=== PATIENT | female | born 1980 | race Caucasian/White ===

== ENCOUNTER 2017-08-05 06:50 | Emergency (ER) | payer OTHER ==
[~2017-08-05] VITALS: Ht 167.6 cm; Wt 162.8 kg
--- NOTE | 2017-08-05 07:09 | PHYS DOC ---
Past History Past Medical History: Hypertension, Hypothyroid Past Surgical History: Other Alcohol Use: None Drug Use: None Adult General Chief Complaint Chief Complaint: ABDOMINAL PAIN HPI HPI Patient is a 36-year-old female presenting to the emergency department for evaluation of right lower quadrant abdominal pain that woke her from her sleep at approximately 5:00 this morning. She says that she is having nausea and vomiting with it. She denies any fevers chills diarrhea constipation dysuria hematuria or abnormal bleeding or discharge. Patient denies having any abdominal surgeries in the past and she denies any similar symptoms. She appears uncomfortable but is in no obvious distress. Review of Systems Review of Systems Constitutional: Denies fever or chills [] Eyes: Denies change in visual acuity, redness, or eye pain [] HENT: Denies nasal congestion or sore throat [] Respiratory: Denies cough or shortness of breath [] Cardiovascular: No additional information not addressed in HPI [] GI: + abdominal pain, nausea, vomiting. No bloody stools or diarrhea [] : Denies dysuria or hematuria [] Musculoskeletal: Denies back pain or joint pain [] Integument: Denies rash or skin lesions [] Neurologic: Denies headache, focal weakness or sensory changes [] Allergies Allergies Allergies Coded Allergies Type Severity Reaction Last Updated Verified No Known Drug Allergies 08/05/17 No Physical Exam Physical Exam Constitutional: Well developed, well nourished, no acute distress, non-toxic appearance. [] HENT: Normocephalic, atraumatic, bilateral external ears normal, oropharynx moist, no oral exudates, nose normal. [] Eyes: PERRLA, EOMI, conjunctiva normal, no discharge. [] Neck: Normal range of motion, no tenderness, supple, no stridor. [] Cardiovascular:Heart rate regular rhythm, no murmur [] Lungs & Thorax: Bilateral breath sounds clear to auscultation [] Abdomen: Bowel sounds normal, soft, + RLQ tenderness, no rebound or guarding, no masses, no pulsatile masses. [] Skin: Warm, dry, no erythema, no rash. [] Back: No tenderness, no CVA tenderness. [] Extremities: No tenderness, no cyanosis, no clubbing, ROM intact, no edema. [] Neurologic: Alert and oriented X 3, normal motor function, normal sensory function, no focal deficits noted. [] Current Patient Data Vital Signs Vital Signs Date Time Temp Pulse Resp B/P (MAP) Pulse Ox O2 Delivery O2 Flow Rate FiO2 08/05/17 07:03 97.9 89 16 95 EKG EKG [] Radiology/Procedures Radiology/Procedures CT of the abdomen and pelvis with contrast, 08/05/2017: History: Right lower quadrant abdominal pain and vomiting Multidetector CT imaging was performed following an IV bolus injection of iodinated contrast material. No oral contrast material was administered for this study. No hepatic abnormality is detected. The gallbladder is unremarkable. The pancreas shows no abnormality. The spleen is of normal size. There is slight prominence of the right renal pelvis. There is slight asymmetry of the renal nephrograms. These findings are due to a 4 mm calculus in the proximal right ureter located at the L3-4 level. The kidneys are otherwise unremarkable. The abdominal aorta is of normal caliber. No retroperitoneal or pelvic adenopathy is seen. The bowel loops are not dilated. A portion of the appendix is visualized and it is of normal size. No pericecal inflammation is seen. Several small mesenteric lymph nodes are noted in the right lower quadrant without pathologic enlargement. No free air or free fluid is evident in the abdomen or pelvis. IMPRESSION: Small obstructing calculus in the proximal right ureter. PQRS Compliance Statement: One or more of the following individualized dose reduction techniques were utilized for this examination: 1. Automated exposure control 2. Adjustment of the mA and/or kV according to patient size 3. Use of iterative reconstruction technique DICTATED AND SIGNED BY: ROSANNA BUCKNER MD DATE: 08/05/17 0803 Course & Med Decision Making Course & Med Decision Making Patient with no flank pain rather she was having more right sided mid and lower abdominal pain so CT abdomen pelvis with contrast obtained which showed that she has a proximal right. Her stone with mild hydronephrosis. Morphine fentanyl Toradol and Zofran and her pain was much better. She said she was able to tolerate the pain's I by mouth challenged her with Percocet and Flomax and she said her pain is still improving and she can tolerate by mouth with no difficulty. Given patient's symptoms are controlled and she appears well with normal vital signs she will be discharged and treated as an outpatient. She was told to follow with a urologist as soon as she could otherwise come back to the emergency department for worsening pain fevers vomiting or other general concerns. Patient aware and agreeable with plan for discharge and verbalized understanding of the above instructions. Dragon Disclaimer Dragon Disclaimer This electronic medical record was generated, in whole or in part, using a voice recognition dictation system. Departure Departure: Impression: Primary Impression: Ureter, calculus Disposition: HOME, SELF-CARE Condition: STABLE Referrals: ANDRY LOWE DO, [facility] (PCP) Patient Instructions: Kidney Stones Additional Instructions: TAKE 400MG OF IBUPROFEN EVERY 6 HOURS FOR PAIN AND THE PERCOCET FOR BREAKTHROUGH PAIN. COME BACK WITH INTRACTABLE PAIN, FEVERS, VOMITING, OR OTHER GENERAL CONCERNS. TRY AND FOLLOW WITH A UROLOGIST SOON YOU CAN. [facility]: [phone] Scripts Tamsulosin Hcl (FLOMAX) 0.4 Mg Cap.er.24h 0.4 MG PO QHS, #10 CAP.SR Prov: SULAIMAN MELGAR DO 08/05/17 Ondansetron (ZOFRAN ODT) 4 Mg Tab.rapdis 1 TAB SL Q8HRS, #15 TAB Prov: SULAIMAN MELGAR DO 08/05/17 Oxycodone Hcl/Acetaminophen (PERCOCET 5-325 MG TABLET) 1 Each Tablet 1 EACH PO Q4-6HRS Y for PAIN, #25 TAB Prov: SULAIMAN MELGAR DO 08/05/17 SULAIMAN MELGAR DO Aug 05, 2017 07:09
[2017-08-05 07:30] LABS: BASO # 0.1 x10^3/uL (0.0-0.2); BASO % 1 % (0-3); EOS # 0.1 x10^3/uL (0.0-0.7); EOS % 1 % (0-3); HEMOGLOBIN 14.4 g/dL (12.0-15.5); LYMPH # 2.1 x10^3/uL (1.0-4.8); LYMPH % 19 % (24-48); MEAN CORPUSCULAR HEMOGLOBIN 31 pg (25-35); MEAN CORPUSCULAR HGB CONC 34 g/dL (31-37); MEAN CORPUSCULAR VOLUME 91 fL (79-100); MONO # 0.8 x10^3/uL (0.0-1.1); MONO % 7 % (0-9); NEUT # 8.3 x10^3uL (1.8-7.7); NEUT % 73 % (31-73); PLATELET COUNT 304 x10^3/uL (140-400); RED BLOOD COUNT 4.72 x10^6/uL (3.50-5.40); RED CELL DISTRIBUTION WIDTH 13.1 % (11.5-14.5); WHITE BLOOD COUNT 11.3 x10^3/uL (4.0-11.0)
[2017-08-05 07:33] LABS: BACTERIA,URINE FEW /HPF (0-FEW); BILIRUBIN,URINE NEG (NEG); CLARITY,URINE HAZY; COLOR,URINE YELLOW; GLUCOSE,URINE NEG (NEG); NITRITE,URINE NEG (NEG); SQUAMOUS EPITHELIAL CELL,UR MOD /LPF; UROBILINOGEN,URINE 0.2 mg/dL (0.2 mg/dL); WBC,URINE RARE /HPF (0-4)
[2017-08-05] MEDS ORDERED: ONDANSETRON PF 4 MG/2 ML VIAL. IV ONE (07:45)
[2017-08-05] MEDS ORDERED: MORPHINE SULFATE 4 MG/ML DISP.SYRIN. IV ONE (07:45)
[2017-08-05] MEDS ORDERED: IOHEXOL 300 MG/ML 75 ML VIAL. IV ONE (07:50)
[2017-08-05] MEDS ORDERED: KETOROLAC 30 MG/ML VIAL. IV ONE (08:00)
[2017-08-05 08:10] LABS: ALBUMIN 3.3 g/dL (3.4-5.0); CALCIUM 8.5 mg/dL (8.5-10.1); GFR 62.1; POTASSIUM 4.1 mmol/L (3.5-5.1); TOTAL BILIRUBIN 0.4 mg/dL (0.2-1.0); TOTAL PROTEIN 6.5 g/dL (6.4-8.2)
--- NOTE | 2017-08-05 08:13 | RAD ---
CT of the abdomen and pelvis with contrast, 08/05/2017: History: Right lower quadrant abdominal pain and vomiting Multidetector CT imaging was performed following an IV bolus injection of iodinated contrast material. No oral contrast material was administered for this study. No hepatic abnormality is detected. The gallbladder is unremarkable. The pancreas shows no abnormality. The spleen is of normal size. There is slight prominence of the right renal pelvis. There is slight asymmetry of the renal nephrograms. These findings are due to a 4 mm calculus in the proximal right ureter located at the L3-4 level. The kidneys are otherwise unremarkable. The abdominal aorta is of normal caliber. No retroperitoneal or pelvic adenopathy is seen. The bowel loops are not dilated. A portion of the appendix is visualized and it is of normal size. No pericecal inflammation is seen. Several small mesenteric lymph nodes are noted in the right lower quadrant without pathologic enlargement. No free air or free fluid is evident in the abdomen or pelvis. IMPRESSION: Small obstructing calculus in the proximal right ureter. PQRS Compliance Statement: One or more of the following individualized dose reduction techniques were utilized for this examination: 1. Automated exposure control 2. Adjustment of the mA and/or kV according to patient size 3. Use of iterative reconstruction technique
[2017-08-05 08:30] VITALS: BP 122/84
[2017-08-05] MEDS ORDERED: TAMSULOSIN 0.4 MG CAP.ER.24H. PO ONE (08:45)
[2017-08-05] MEDS ORDERED: oxyCODONE/APAP 5/325 1 TAB TABLET PO ONE (08:45)
[2017-08-05] MEDS ORDERED: TAMS0.4C97 PO (08:50)
[2017-08-05] MEDS ORDERED: OXYC-323 PO (08:50)
[2017-08-05] MEDS ORDERED: ONDA4TAB10 SL (08:50)
== END 2017-08-05 08:54 | disposition home or self-care (01) ==
LOC: ER 06:50
DX: N13.2 Hydronephrosis with renal and ureteral calculous obstruction (principal); E03.9 Hypothyroidism, unspecified; I10 Essential (primary) hypertension
CPT/HCPCS: 36415; 74177; 80053; 81001; 81025; 83690; 85025; 96374; 96375; 99285; J1885; J2270; J2405; J3010; Q9967

== ENCOUNTER 2021-06-18 00:17 | Emergency (ER) | payer OTHER ==
[~2021-06-18] VITALS: Ht 167.6 cm; Wt 152.3 kg
[~2021-06-18 00:17] MED LIST: ONDA4TAB10 SL; OXYC1TAB15 PO; TAMS0.4C97 PO
[2021-06-18] MEDS ORDERED: LIDO:MAALOX 1:1 20 ML SINGLE DOSE. PO ONE (00:30)
--- NOTE | 2021-06-18 00:35 | PHYS DOC ---
Past History Past Medical History: Hypertension, Hypothyroid Past Surgical History: Other Alcohol Use: None Drug Use: None Adult General Chief Complaint Chief Complaint: CHEST PAIN HPI HPI Patient is a 40-year-old female, with a past medical history of hypothyroidism on levothyroxine and hypertension on losartan, who currently vapes nicotine, who presents with a chief complaint of dull substernal burning chest pain has been going on about 5 hours now, relatively constant with no noticeable aggravating or alleviating factors. Denies any dyspnea on exertion, orthopnea, PND or edema. Denies any recent travel, traumas, illnesses, fevers, abdominal pain, nausea, vomiting, diarrhea. Denies any personal cardiac history or family cardiac history at her age. Denies any history of VTE. Review of Systems Review of Systems Review of systems otherwise unremarkable except noted in HPI Current Medications Current Medications Current Medications Medications (Trade) Dose Ordered Sig/Germain Start Time Stop Time Status Last Admin Dose Admin Multi-Ingredient Mouthwash/Gargle (Gi Cocktail) 20 ml 1X ONCE 06/18/21 00:30 06/18/21 00:31 UNV Allergies Allergies Allergies Coded Allergies Type Severity Reaction Last Updated Verified No Known Drug Allergies 08/05/17 No Physical Exam Physical Exam Constitutional: Well developed, well nourished, no acute distress, non-toxic appearance. [] HENT: Normocephalic, atraumatic, bilateral external ears normal, oropharynx moist, no oral exudates, nose normal. [] Eyes: conjunctiva normal, no discharge. [] Neck: Normal range of motion, no tenderness, supple, no stridor. [] Cardiovascular:Heart rate regular rhythm, no murmur [] Lungs & Thorax: Bilateral breath sounds clear to auscultation [] Abdomen: soft, no tenderness, no masses, no pulsatile masses. [] Skin: Warm, dry, no erythema, no rash. [] Back: no CVA tenderness. [] Extremities: No tenderness, no cyanosis, no clubbing, ROM intact, no edema. [] Neurologic: Alert and oriented X 3, normal motor function, normal sensory function, no focal deficits noted. [] Psychologic: Affect normal, judgement normal, mood normal. [] EKG EKG [] Radiology/Procedures Radiology/Procedures [] Heart Score C/O Chest Pain: Yes HEART Score for Chest Pain: HEART Score for Chest Pain Response (Comments) Value History Slighlty/Non-Suspicious 0 ECG Normal 0 Age < 45 0 Risk Factors 1 or 2 Risk Factors 1 Total 1 Risk Factors: Risk Factors: DM, Current or recent (<one month) smoker, HTN, HLP, family history of CAD, obesity. Risk Scores: Risk Factors: DM, Current or recent (<one month) smoker, HTN, HLP, family hist ory of CAD, obesity. Course & Med Decision Making Course & Med Decision Making Patient is a 40-year-old female who presents with burning chest pain for the last 5 hours Vital signs not concerning. Physical exam noted above. EKG noted above with no STEMI and normal. Troponin normal. Low risk Wells. PERC negative. Chest x- ray concerning for bilateral opacities suggestive of inflammatory infectious process. Started on antibiotics in the ED. Given GI cocktail. Discussed all findings with patient and family. Advised to follow-up in the morning with primary care physician to update on ED visit and set up a follow-up for soon as possible to discuss further evaluation and treatment. Gave strict return precautions to the ED. Also discussed starting a [id number] PPI until seen by her primary care physician. Patient grateful, verbalized understanding and agreed with plan of discharge. [] Dragon Disclaimer Dragon Disclaimer This electronic medical record was generated, in whole or in part, using a voice recognition dictation system. Departure Departure: Impression: Primary Impression: Chest pain Additional Impression: Pneumonia Disposition: 01 HOME / SELF CARE / HOMELESS Condition: GOOD Referrals: ARIC DOVE APRN (PCP) Patient Instructions: Chest Pain (Nonspecific), Pneumonia, Adult Additional Instructions: Thank you for coming into the emergency department tonight and allowing us to take care of you. Please read the attached information carefully to go back over some of the things we discussed. It might be a good idea to start an [id number] heartburn medicine such as omeprazole, once daily until you see your primary care physician and discuss need to continue. Please call your primary care physician first thing in the morning to update on your ED visit and set up a follow-up as soon as you can to discuss need for further evaluation and treatment including outpatient stress test. Please come back to the emergency department immediately with new or concerning symptoms as we discussed. You have been tested for or diagnosed with COVID-19. It is an infection caused by a new type of coronavirus. COVID-19 will cause cold-like or mild flu symptoms in most. It can cause more severe symptoms like problems breathing in some. There is no treatment for COVID-19. The body will clear the infection over time. Self-care will help to ease discomfort. Steps to Take: Self-Care Rest as needed. Healthy habits may help you feel better. Steps include: Choose healthy foods including fruits and vegetables. Drink water throughout the day. Get plenty of sleep each night. If you smoke, try to quit. It may ease breathing. Avoid alcohol. Keep Others Healthy The virus can spread to others. Droplets are released every time you sneeze or cough. The droplets can get into the mouth, nose, or eyes of people near you and lead to infection. To lower the chances of spreading COVID-19 to others: Stay at home until your doctor has said it is safe to leave. If you tested positive this will mean staying isolated until both of the following are true: At least 7 days have passed since the start of illness. You are free of fever for at least 72 hours without the use of medicine. During this time: - Avoid public areas, events, or transportation. Do not return to work or school until your doctor has said it is safe to do so. - Call ahead if you need to go to a medical center. Let them know you may have COVID-19. It will help them guide you where to go. They may also ask you to wear a facemask when you come to the office. - If you call for emergency medical services, let them know you may have COVID- 19. While at home: - Try to avoid close contact with others. Stay about 6 feet away. - If possible, spend most of your time in a separate room from others. - Use a face mask if you will be in close contact with others such as sharing a room or vehicle. - Have someone wipe down common surfaces in the home. Use household light rail operator every day on areas like doorknobs, counters, or sinks. - Cough or sneeze into a tissue. Throw the tissue away right after use. If a tissue is not available, cough or sneeze into your elbow. - Wash your hands often. Wash them after sneezing or coughing. Use soap and water and wash for at least 20 seconds. Alcohol based hand dry cleaner hand can be used if soap and water is not available. - Do not prepare food for others. Avoid sharing personal items like forks, spoons, or toothbrushes. - Avoid close contact with pets while you are sick. There is no evidence of the virus passing to pets. This is a safety step until more is known about this virus. Isolation can be frustrating. Social interaction can help. Keep in touch with friends and family through phone and tech options. You can still interact with others in your home, just keep a safe distance of about 6 feet. Follow-up: Your doctors office will check in with you to see if there are any changes in your health. You may be asked to keep track of symptoms to share with them. They will also let you know when you are clear to be in public again. Problems to Look Out For: Contact your doctor if your recovery is not going as you expect. Get emergency care if you have problems such as: - Trouble breathing - Nonstop chest pain or pressure - Changes in awareness, confusion, or problems waking - Lips or face have bluish color - Worsening of symptoms If you think you have an emergency, call for emergency medical services right away. [facility] Scripts Amoxicillin/Potassium Clav (AUGMENTIN 875-125 TABLET) 1 Each Tablet 1 TAB PO BID for PNA for 10 Days, #19 TAB 0 Refills Prov: RODNEY DUENAS MD 06/18/21 Problem Qualifiers RODNEY DUENAS MD Jun 18, 2021 00:35
--- NOTE | 2021-06-18 00:38 | EKG ---
[address] [address] Test Date: 2021-06-18 Test Time: 00:22:17 Pat Name: ESAU DE LA CRUZ Department: Room: Gender: F [employer] Person: : 1980 Requested By: RODNEY DUENAS Order Number: [id number] Reading MD: Ryan Vanegas Measurements Intervals [place] Rate: 79 P: 38 MS: 190 QRS: 54 QRSD: 80 T: 24 QT: 342 QTc: 393 Interpretive Statements SINUS RHYTHM NO SPECIFIC ECG ABNORMALITIES RI6.02 No previous ECG available for comparison Electronically Signed On 06-18-2021 15:54:36 CDT by Ryan Vanegas
[2021-06-18 01:05] LABS: BASO # 0.1 x10^3/uL (0.0-0.2); BASO % 0 % (0-3); EOS % 0 % (0-3); LYMPH # 3.1 x10^3/uL (1.0-4.8); LYMPH % 23 % (24-48); MEAN CORPUSCULAR HEMOGLOBIN 31 pg (25-35); MEAN CORPUSCULAR HGB CONC 34 g/dL (31-37); MEAN CORPUSCULAR VOLUME 92 fL (79-100); MONO # 0.9 x10^3/uL (0.0-1.1); MONO % 7 % (0-9); NEUT # 9.3 x10^3uL (1.8-7.7); NEUT % 69 % (31-73); PLATELET COUNT 317 x10^3/uL (140-400); RED BLOOD COUNT 4.55 x10^6/uL (3.50-5.40); RED CELL DISTRIBUTION WIDTH 13.4 % (11.5-14.5); WHITE BLOOD COUNT 13.4 x10^3/uL (4.0-11.0)
[2021-06-18 01:08] LABS: CALCIUM 9.4 mg/dL (8.5-10.1); CREATININE 0.8 mg/dL (0.6-1.0); GFR 78.7; POTASSIUM 3.5 mmol/L (3.5-5.1)
[2021-06-18] MEDS ORDERED: AMOX1TAB61 PO (01:41)
[2021-06-18] MEDS ORDERED: AMOXICILLIN/K CLAV 875/125MG TABLET. PO ONE (01:45)
--- NOTE | 2021-06-18 01:55 | RAD ---
XR CHEST 1V History: Reason: CP / Spl. Instructions: / History: Comparison: None. Findings: Mild ill-defined mid and bibasilar opacities. No pleural effusion. No pneumothorax. Normal heart size . Impression: 1. Mild ill-defined mid and bibasilar opacities, may represent atelectasis or infiltrates including viral pneumonia. Electronically signed by: Dylan Lewis DO (06/18/2021 1:52 AM) [facility] [place]
[2021-06-18 02:12] VITALS: BP 142/92
--- NOTE | 2021-06-19 09:50 | NUR ---
PATIENT NOTIFIED OF COVID RESULTS
== END 2021-06-18 02:22 | disposition home or self-care (01) ==
LOC: ER 00:17
DX: R07.89 Other chest pain (principal); J18.9 Pneumonia, unspecified organism; I10 Essential (primary) hypertension; Z20.822 Contact with and (suspected) exposure to COVID-19
CPT/HCPCS: 36415; 71045; 80048; 81025; 84484; 85025; 93005; 99285; C9803; U0003

== ENCOUNTER → 2021-07-06 | Outpatient (CLI) | payer OTHER ==
[2021-06-18 02:12] VITALS: BP 142/92
[~2021-07-06] MED LIST changes: +AMOX1TAB61 PO
--- NOTE | 2021-07-06 14:03 | RAD ---
EXAM: ULTRASOUND SOFT TISSUE NECK CLINICAL HISTORY: Reason: HYPOTHYROIDISM; THYROID NODULE / Spl. Instructions: / History: COMPARISON: None available. TECHNIQUE: Ultrasound examination of the thyroid gland was performed FINDINGS: The thyroid is homogeneous in echogenicity. No hyperemia. The right thyroid lobe measures 4.2 x 1.4 x 1.5 cm. The left thyroid lobe measures 4.3 x 1.0 x 1.2 cm. The thyroid isthmus measures 6 mm. Nodule: Location: Posterior inferior right thyroid lobe Size: 1.1 x 0.9 x 0.8 cm Composition: Solid Echogenicity: Hypoechoic Margins: Smooth Shape: Wider than tall Echogenic foci: None TI-RADS SCORE: 4 IMPRESSION: 1.1 cm TI-RADS 4 thyroid nodule in the inferior right thyroid lobe. Recommend follow-up ultrasound in one year to ensure stability. Electronically signed by: Jenni Cotto MD (07/06/2021 2:01 PM) [id number]
== END ==
LOC: US 10:56
PROVIDERS: ATTEND Clinical Nurse Specialist Family Health
DX: E04.1 Nontoxic single thyroid nodule (principal); E03.9 Hypothyroidism, unspecified
CPT/HCPCS: 76536